=== PATIENT | male | born 1995 ===

== ENCOUNTER 2022-05-29 18:14 | Emergency (ER) | payer SELFPAY ==
[2022-05-29 18:31] VITALS: BP 97/72; PULSE 90; RESP 14; TEMP 36.5; O2SAT 98
== END 2022-05-29 18:35 | disposition left against medical advice (07) ==
DX: K08.89 Other specified disorders of teeth and supporting structures (principal)
CPT/HCPCS: 99199

== ENCOUNTER 2022-06-14 01:48 | Emergency (ER) | payer SELFPAY ==
[2022-06-14 01:51] VITALS: BP 150/87; PULSE 84; RESP 16; TEMP 36.9; O2SAT 96
--- NOTE | 2022-06-14 02:00 | PC.NURSE ---
pt reports he thinks he is septic because he has a tooth that broke off over a year ago but the root is still in place. Pt denies any pain, no swelling or redness noticed to area. Pt then states I know all about sepsis and I know I have it.
--- NOTE | 2022-06-14 02:06 | ED.DENTAL ---
HPI - Dental/Oral General Chief complaint: Dental/Oral Stated complaint: tooth pain Time Seen by Provider: 06/14/22 02:05 History of Present Illness HPI Narrative: 27-year-old male presents to the emergency room via EMS for evaluation of dental pain that has been present for 18 months. Patient states that he has been evaluated at multiple other emergency room's for this dental pain and was told that he had infected tooth and needed to follow-up with a dentist. Admits to completing multiple courses of antibiotics. Patient states that he has not followed up with a dentist. States he has been experiencing this pain for several months, and was told he needed to come to the emergency room by his spouse to be evaluated for possible sepsis. Related Data Allergies Allergy/AdvReac Type Severity Reaction Status Date / Time No Known Allergies Allergy Verified 05/29/22 18:37 Review of Systems Review of Systems: CONSTITUTIONAL: Denies fever, chills, or sweats. EYES: Denies visual changes, redness, or discharge. ENT: Denies rhinorrhea, congestion, sore throat, or otalgia. CARDIOVASCULAR: Denies chest pain, palpitations, or edema. RESPIRATORY: Denies cough or dyspnea. GASTROINTESTINAL: Denies abdominal pain, nausea, vomiting, or diarrhea. GENITOURINARY: Denies dysuria or hematuria. SKIN: Denies rash or itching. MUSCULOSKELETAL: Denies back pain, joint pain, or myalgia. NEUROLOGIC: Denies headache, numbness, dizziness, or weakness. PSYCHIATRIC: Denies anxiety or depression. Exam Narrative: GENERAL: Intoxicated with THC HEAD: Normocephalic, atraumatic. EYES: Conjunctivae normal, PERRLA and EOMI. ENT: Left lower molar: dental pocket with mostly fractured molar and no dental tenderness, no erythema, no swelling, no observable abscess. No purulent drainage. No submandibular tenderness or swelling. NECK: Supple. No adenopathy or masses. CHEST: Clear to auscultation. No respiratory distress. No wheezes rales or rhonchi. HEART: Regular rate and rhythm. No murmur heard. Normal peripheral pulses. EXTREMITIES: Normal range of motion. No edema. No clubbing or cyanosis SKIN: Warm, dry, no rash. No noted wounds NEURO: No focal deficits. Alert and oriented x3. MAEW. CN's II-XI intact bilaterally, normal gait PSYCH: Cooperative. Normal mood and affect. Course Vital Signs Vital signs: Vital Signs Temperature 36.9 C 06/14/22 01:51 Pulse Rate 84 06/14/22 01:51 Respiratory Rate 16 06/14/22 01:51 Blood Pressure 150/87 H 06/14/22 01:51 Pulse Oximetry 96 06/14/22 01:51 Oxygen Delivery Room Air 06/14/22 01:51 Temperature 36.9 C 06/14/22 01:51 Pulse Rate 84 06/14/22 01:51 Respiratory Rate 16 06/14/22 01:51 Blood Pressure 150/87 H 06/14/22 01:51 Pulse Oximetry 96 06/14/22 01:51 Oxygen Delivery Room Air 06/14/22 01:51 Discharge Plan Discharge Clinical Impression: Toothache Patient Disposition: Home, Self-Care Condition: Stable Instructions: Antibiotic Form, Toothache (ED) Additional Instructions: There is no signs of sepsis or infection in your mouth. Strongly recommend you follow-up with a dentist. Follow-up/Referrals: PHYSICIAN,HEALTH AND SAFETY MANAGER [Primary Care Provider] - Stand Alone Forms: Work/School Release IP Time of Disposition: 02:09
== END 2022-06-14 02:34 | disposition home or self-care (01) ==
PROVIDERS: Emergency Provider Nurse Practitioner Family
DX: K08.89 Other specified disorders of teeth and supporting structures (principal)
CPT/HCPCS: 99281

== ENCOUNTER 2024-03-14 10:55 | Emergency (ER) | payer SELFPAY | END 2024-03-14 11:12 | disposition left against medical advice (07) | DX: Z53.21 Procedure and treatment not carried out due to patient leaving prior to being seen by health care provider (principal) | CPT/HCPCS: 99199 ==